=== PATIENT | male | born 1995 | race African-American/Black ===

== ENCOUNTER 2024-07-31 21:53 | Emergency (ER) | payer OTHER, MEDICAID ==
[~2024-07-31] VITALS: Ht 188 cm; Wt 76.4 kg
--- NOTE | 2024-07-31 22:08 | NUR ---
CALLED X1, NO RESPONSE. NOT OUTSIDE AT THIS TIME.
[2024-07-31 22:28] VITALS: BP 134/89; PULSE 71; RESP 20; TEMP 98.2; O2SAT 99
[2024-07-31 22:46] VITALS: O2SAT 99
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
--- NOTE | 2024-07-31 22:47 | NUR ---
Patient discharged with v/s stable. Written and verbal after care instructions given and explained. Patient verbalized understanding. Ambulatory with steady gait. All questions addressed prior to discharge. Advised to follow up with PMD.
== END 2024-07-31 22:47 | disposition home or self-care (01) ==
LOC: MED 21:53
DX: S16.1XXA Strain of muscle, fascia and tendon at neck level, initial encounter (principal); V89.2XXA Person injured in unspecified motor-vehicle accident, traffic, initial encounter; Y93.89 Activity, other specified; Y92.89 Other specified places as the place of occurrence of the external cause; Y99.8 Other external cause status
CPT/HCPCS: 99282